=== PATIENT | female | born 1950 | race Caucasian/White ===

== ENCOUNTER 2018-05-31 08:36 | Outpatient (CLI) | payer OTHER ==
[~2018-05-31 08:36] MED LIST changes: -ALEVE220 M1 PO; -CIPRO500 MG PO; -ULTRACET PO
[2018-05-31] MEDS ORDERED: CIPRO500 MG PO ×2 (11:16)
[2018-05-31] MEDS ORDERED: ULTRACET PO ×2 (11:16)
[2018-05-31] MEDS ORDERED: ALEVE220 M1 PO ×2 (11:16)
== END 2018-05-31 08:43 | disposition home or self-care (01) ==
LOC: LAB 08:36
DX: S83.241A Other tear of medial meniscus, current injury, right knee, initial encounter (principal)

== ENCOUNTER → 2018-05-31 | Day surgery (SDC) | payer OTHER ==
[~2018-05-31] MED LIST: ALEVE220 M1 PO; ATORVASTATIN CA20 MG PO; CIPRO500 MG PO; CLONAZEPAM0.5 MG PO; FORTAMET1000 MG PO; GLIPIZIDE ER10 MG PO; LATANOPROST2.5 ML OP; NEURONTIN300 MG PO; NORVASC5 MG PO; ULTRACET PO
== END | disposition home or self-care (01) ==
LOC: CIR.AMB 08:49
DX: S83.241A Other tear of medial meniscus, current injury, right knee, initial encounter (principal); M94.261 Chondromalacia, right knee; S83.281A Other tear of lateral meniscus, current injury, right knee, initial encounter; E66.09 Other obesity due to excess calories